=== PATIENT | female | born 1965 | race Caucasian/White ===

== ENCOUNTER → 2017-03-22 | Outpatient (CLI) | payer OTHER | LOC: FIMAGING 15:56 | PROVIDERS: ATTEND Family Medicine | DX: Z12.31 Encounter for screening mammogram for malignant neoplasm of breast (principal) | CPT/HCPCS: G0202 ==

== ENCOUNTER 2018-01-20 17:59 | Emergency (ER) | payer OTHER ==
[2018-01-20] MEDS ORDERED: IBUPROFEN 600 MG TAB PO ONE (18:05)
[2018-01-20] MEDS ORDERED: TDAP ADULT 0.5 ML INJ (BOOSTRIX) IM ONE (18:49)
--- NOTE | 2018-01-20 18:49 | EDPHY ---
General Time Seen by Provider: 01/20/18 18:32 Narrative: CHIEF COMPLAINT: "I cut the tip of my thumb off" HISTORY OF PRESENT ILLNESS: Patient presents with complaints of accidental laceration to the left thumb. She was cutting onions less than 1 hr ago when she accidentally cut the tip of the left thumb off. Moderately painful she touches it. Minimal at rest. Does not radiate. Bleeding was difficult to stop until just prior to arrival. She applied Neosporin to and and a pressure dressing. She has no difficulty bending or straightening the thumb. No injury elsewhere. Tetanus up-to-date. No other associated complaints or modifying factors TIME OF INJURY: Less than 1 hr ago TETANUS STATUS: Uncertain MEDICAL/SURGICAL/SOCIAL HISTORY: Hypothyroid. No recent surgical history. Nonsmoker. Lives independently with her spouse. REVIEW OF SYSTEMS: Ten systems reviewed and are negative unless otherwise noted in the HPI EXAMINATION General Appearance: Alert, no distress Head: normocephalic, atraumatic Cardiovascular: Pulses normal throughout. Brisk cap refill Neurological: A&O, sensory symmetric, strength symmetric Skin: Warm and dry, no rash Extremities: Nontender, no pedal edema DIFFERENTIAL DIAGNOSES: Including but not limited to tissue avulsion, finger to laceration, laceration with deep structure injury MDM: 6:30 p.m. Avulsion of the left thumb pad from knife less than 1 hr ago. Her tetanus is not up-to-date. She is neuro intact distally. I have administered a digital block. We will irrigate the wound and obtain hemostasis. No deficits. 6:50 p.m. Wound is being irrigated at this time. She has an avulsion of the tip of the right thumb measuring 1 x 1 cm with very small involvement of the nail. No injury to the nail bed. There is no laceration that requires suture repair as the finger tip was avulsed and is too small to be vascular intact. She has surgeon foam that is currently being placed. A bulky dressing we placed and we will monitor for hemostasis. Full flexion extension retained. Full opposition , adduction, abduction of the thumb intact. 7:00 p.m. Wound has been dressed and I have re-evaluated her. There is no bleeding we discussed the above and she will be discharged home in stable condition. Wound care discussed. Follow-up discussed. Prepack of pain medication provided as the pharmacies are closed at this time. I have answered all her questions. She is well-appearing. There is no bleeding. PROCEDURE: Digital Block Indication: Finger laceration Consent: Verbal Location: Left thumb Anesthesia: Lidocaine 1% plain, 0.25% Marcaine plain, 5mL Description: Base of the finger was prepped. The above was infused without difficulty in a ring block fashion. Tolerated well. Good anesthesia. Complications: None SUPERVISION: This patient was independently evaluated without direct involvement of or examination by the attending physician. ED Precautions: Worsening pain. Erythema, edema, cyanosis, pallor, paresthesia or anesthesia. - History Smoking Status: Never smoked - Objective Vital Signs: Initial Vital Signs Temperature (C) 98.1 F 01/20/18 18:01 Heart Rate 71 01/20/18 18:01 Respiratory Rate 18 01/20/18 18:01 Blood Pressure 155/100 H 01/20/18 18:01 O2 Sat (%) 95 01/20/18 18:01 O2 Delivery Mode Room Air Allergies/Adverse Reactions: No Known Allergies Allergy (Unverified 01/20/18 18:00) Home Medications: Medication Instructions Recorded Levothyroxine 01/20/18 Venlafaxine Xr 01/20/18 Medications Given: Discontinued Medications Diphtheria/Tetanus/Acell Pertussis (Boostrix) 0.5 ml IM .ONCE ONE Stop: 01/20/18 18:50 Last Admin: 01/20/18 18:59 Dose: 0.5 ml Ibuprofen (Motrin) 600 mg PO EDNOW ONE Stop: 01/20/18 18:06 Last Admin: 01/20/18 18:07 Dose: 600 mg Oxycodone/Acetaminophen (Percocet 5/325mg Prepack#4) 1 btl TAKEHOME EDNOW ONE Stop: 01/20/18 19:04 Last Admin: 01/20/18 19:14 Dose: 1 btl Departure - Departure Disposition: Home, Routine, Self-Care Clinical Impression: Avulsion of fingertip Qualifiers: Encounter type: initial encounter Qualified Code(s): S61.209A - Unspecified open wound of unspecified finger without damage to nail, initial encounter Condition: Good Instructions: Oxycodone/Acetaminophen (By mouth), Skin Avulsion (ED) Additional Instructions: 1. Daily wound care with dressing changes and layer of bacitracin applied once daily. You may leave the current dressing in place for up to 48 hr 2. ED precautions for any bleeding, redness, warmth or difficulty using the thumb 3. Contact hand surgeon or healing center for outpatient definitive care Referrals: Jessa Azul MD [Primary Care Provider] - As per Instructions [facility] [Clinic] - As per Instructions Jai Cardozo MD [Medical Doctor] - As per Instructions
[2018-01-20] MEDS ORDERED: OXYCODONE/APAP 5/325MG PREPACK#4 BTL TAKEHOME ONE (19:03)
[2018-01-20 19:25] VITALS: BP 148/109
== END 2018-01-20 19:24 | disposition home or self-care (01) ==
PROC: 3E0T3BZ Introduction of Anesthetic Agent into Peripheral Nerves and Plexi, Percutaneous Approach (ICD-10-PCS; principal; 2018-01-20)
DX: S61.101A Unspecified open wound of right thumb with damage to nail, initial encounter (principal); W26.9XXA Contact with unspecified sharp object(s), initial encounter; Y93.G1 Activity, food preparation and clean up; Y99.8 Other external cause status; Z23 Encounter for immunization

== ENCOUNTER → 2018-05-15 | Outpatient (CLI) | payer OTHER | LOC: FIMAGING 10:20 | PROVIDERS: ATTEND Family Medicine | DX: Z12.31 Encounter for screening mammogram for malignant neoplasm of breast (principal) ==